=== PATIENT | female | born 1970 | race American Indian/Alaskan Native ===

== ENCOUNTER 2016-11-06 09:11 | Emergency (ER) | payer MEDICARE ==
[2016-11-06 09:19] VITALS: BP 105/76
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
[2016-11-06] MEDS ORDERED: PERCOCET 5/325 PO ONE (11:09)
--- NOTE | 2016-11-06 11:52 | XRay Report ---
LEFT KNEE, 3 VIEWS History: Pain, decreased range of motion Findings: Moderate osteoarthritic changes are identified in the medial compartment and patellofemoral space. There is no evidence for fracture, bone lesion or large osteochondral defect. Small joint effusion is suspected. Impression: Moderate osteoarthritic changes.
== END 2016-11-06 12:54 | disposition home or self-care (01) ==
LOC: ED 09:11
DX: M79.605 Pain in left leg (principal); M79.604 Pain in right leg; J06.9 Acute upper respiratory infection, unspecified; M17.9 Osteoarthritis of knee, unspecified; F20.9 Schizophrenia, unspecified; J45.909 Unspecified asthma, uncomplicated; R56.9 Unspecified convulsions; Z87.891 Personal history of nicotine dependence

== ENCOUNTER 2016-12-12 08:05 | Emergency (ER) | payer MEDICARE ==
[2016-12-12 09:10] LABS: Urine Drugs of Abuse Note Disclamer
[2016-12-12 09:24] LABS: Hematocrit 30.1 % (30.3-42.9); Hemoglobin 9.8 gm/dl (10.1-14.3); Mean Corpuscular HGB Conc 33 % (30-34); Mean Corpuscular Hemoglobin 26 pg (28-32); Mean Corpuscular Volume 81 fl (79-97); Platelet Count 197 K/mm3 (140-440); Red Blood Count 3.73 M/mm3 (3.65-5.03); Red Cell Distribution Width 15.5 % (13.2-15.2); White Blood Count 3.7 K/mm3 (4.5-11.0)
[2016-12-12 09:32] LABS: Bacteria,Urine 1+ /HPF (Negative); Bilirubin,Urine NEG (Negative); Blood,Urine SM (Negative); Ketones,Urine NEG (Negative); Leukocyte Esterase,Urine MOD (Negative); Mucus,Urine FEW /HPF; Nitrite,Urine NEG (Negative); Protein,Urine <15 mg/dL mg/dL (Negative); Urobilinogen,Urine < 2.0 mg/dL (<2.0)
[2016-12-12 09:41] LABS: Anion Gap 13 mmol/L; BUN/Creatinine Ratio 16.66; Blood Urea Nitrogen 10 mg/dL (7-17); Calcium 8.3 mg/dL (8.4-10.2); Carbon Dioxide 24 mmol/L (22-30); Chloride 103.9 mmol/L (98-107); Glucose 83 mg/dL (65-100); Potassium 3.6 mmol/L (3.6-5.0); Sodium 137 mmol/L (137-145)
[2016-12-12 11:04] LABS: Blastocytes % (Manual) 0 %
[2016-12-12 11:05] LABS: Anisocytosis 1+; Diff Status Complete; Platelet Estimate Cons
--- NOTE | 2016-12-12 15:07 | Emergency Department Report ---
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 Myelocytes % % Promyelocytes % % Blast Cells % % Nucleated RBC % Seg Neutrophils # Man (1.8-7.7) K/mm3 Band Neutrophils # K/mm3 Lymphocytes # (Manual) (1.2-5.4) K/mm3 Abs React Lymphs (Man) K/mm3 Monocytes # (Manual) (0.0-0.8) K/mm3 Eosinophils # (Manual) (0.0-0.4) K/mm3 Basophils # (Manual) (0.0-0.1) K/mm3 Metamyelocytes # K/mm3 Myelocytes # K/mm3 Promyelocytes # K/mm3 Blast Cells # K/mm3 WBC Morphology Hypersegmented Neuts Hyposegmented Neuts Hypogranular Neuts Smudge Cells Toxic Granulation Toxic Vacuolation Dohle Bodies Pelger-Huet Anomaly Federico Rods Platelet Estimate Clumped Platelets Plt Clumps, EDTA Large Platelets Giant Platelets Platelet Satelliting Plt Morphology Comment RBC Morphology Dimorphic RBCs Polychromasia Hypochromasia Poikilocytosis Anisocytosis Microcytosis Macrocytosis Spherocytes Pappenheimer Bodies Sickle Cells Target Cells Tear Drop Cells Ovalocytes Helmet Cells Sin-Spal[place] Bodies [place] Rings Liz Cells Bite Cells Crenated Cell Elliptocytes Acanthocytes (Spur) Rouleaux Hemoglobin C Crystals Schistocytes Malaria parasites Gary Bodies Hem Pathologist Commnt Sodium (137-145) mmol/L Potassium (3.6-5.0) mmol/L Chloride (98-107) mmol/L Carbon Dioxide (22-30) mmol/L Anion Gap mmol/L BUN (7-17) mg/dL Creatinine (0.7-1.2) mg/dL Estimated GFR ml/min BUN/Creatinine Ratio % Glucose (65-100) mg/dL Calcium (8.4-10.2) mg/dL Total Creatine Kinase 115 (30-135) units/L HCG, Qual (Negative) Urine Color (Yellow) Urine Turbidity (Clear) Urine pH (5.0-7.0) Ur Specific [place] (1.003-1.030) Urine Protein (Negative) mg/dL Urine Glucose (UA) (Negative) mg/dL Urine Ketones (Negative) mg/dL Urine Blood (Negative) Urine Nitrite (Negative) Urine Bilirubin (Negative) Urine Urobilinogen (<2.0) mg/dL Ur Leukocyte Esterase (Negative) Urine WBC (Auto) (0.0-6.0) /HPF Urine RBC (Auto) (0.0-6.0) /HPF U Epithel Cells (Auto) (0-13.0) /HPF Urine Bacteria (Auto) (Negative) /HPF Urine Mucus /HPF Salicylates < 0.3 L (2.8-20.0) mg/dL Urine Opiates Screen Urine Methadone Screen Acetaminophen < 15.0 (10.0-30.0) ug/mL Ur Barbiturates Screen Valproic Acid < 2.8 L (50-100) ug/mL Ur Phencyclidine Scrn Ur Amphetamines Screen U Benzodiazepines Scrn Urine Cocaine Screen U Marijuana (THC) Screen Drugs of Abuse Note Plasma/Serum Alcohol (0-0.07) gm% - EKG Data -: EKG Interpreted by Me EKG shows normal: sinus rhythm, axis, intervals, QRS complexes, ST-T waves Rate: normal - EKG Data When compared to previous EKG there are: previous EKG unavailable - Radiology Data Radiology results: report reviewed, image reviewed CT scan of the brain is negative. CT scan of the cervical spine is negative Critical care attestation.: If time is entered above; I have spent that time in minutes in the direct care of this critically ill patient, excluding procedure time. ED Disposition Clinical Impression: Mood disorder Disposition: DC/TX PSY HOSP/PSY UNIT Is pt being admited?: No Does the pt Need Aspirin: No Condition: Good Referrals: PRIMARY CARE, [Primary Care Provider] - 3-5 Days
--- NOTE | 2016-12-12 16:05 | Cat Scan Report ---
CT scan of head without contrast: History: Lengthening strike an easier. Findings: Ventricles are normal in size and midline in location. No evidence of acute ischemia, hemorrhage or mass. No extra-axial fluid collection. Normal brainstem and cerebellum. Impression: No acute intracranial abnormality.
--- NOTE | 2016-12-12 16:09 | Cat Scan Report ---
CT scan cervical spine: History: Light demonstrate amnesia. Findings: The odontoid process and lateral mass and anterior and posterior arch of atlas appears unremarkable. Normal occipital condyles. Normal height of vertebral bodies 2 decrease in height of C3-4, C4-C5 and C5-C6 with evidence of cervical spondylosis. Large anterior osteophyte at C5. Normal prevertebral soft tissue. No fracture. Impression: No evidence of acute fracture. Cervical spondylosis
[2016-12-12 16:18] LABS: Salicylate < 0.3 mg/dL (2.8-20.0); Valproate < 2.8 ug/mL (50-100)
[2016-12-12] MEDS ORDERED: ATIVAN IM PRN (17:35)
[2016-12-12] MEDS ORDERED: MOTRIN PO PRN (17:35)
[2016-12-12] MEDS: ZOLOFT PO SCH (20:00)
[2016-12-12] MEDS ORDERED: AMBIEN PO SCH (22:00)
[2016-12-13] MEDS: ZOLOFT PO SCH (10:08)
[2016-12-13 10:10] VITALS: BP 110/69
[2016-12-13] MEDS ORDERED: NON-FORMULARY (Quetiapine Fumarate [Seroquel Xr] 400 MG) PO SCH (18:00)
== END 2016-12-13 12:43 ==
LOC: ED 08:05
DX: F39 Unspecified mood [affective] disorder (principal); R56.9 Unspecified convulsions; F20.9 Schizophrenia, unspecified; F43.10 Post-traumatic stress disorder, unspecified; J45.909 Unspecified asthma, uncomplicated; F17.200 Nicotine dependence, unspecified, uncomplicated; F14.10 Cocaine abuse, uncomplicated; F12.10 Cannabis abuse, uncomplicated; Z90.49 Acquired absence of other specified parts of digestive tract; Z98.51 Tubal ligation status; Z91.013 Allergy to seafood; Z21 Asymptomatic human immunodeficiency virus [HIV] infection status
CPT/HCPCS: 36415; 70450; 72125; 80048; 80164; 80307; 81001; 82550; 84703; 85007; 85025; 93005; 93010; 99285; G0480; 80320

== ENCOUNTER 2017-05-11 23:01 | Emergency (ER) | payer MEDICARE ==
[2017-05-12 00:02] VITALS: BP 122/80
--- NOTE | 2017-05-12 03:00 | Emergency Department Report ---
HPI - General Chief Complaint: Back Pain/Injury Time Seen by Provider: 05/12/17 02:19 - HPI HPI: This is a 47-year-old female presents to ED complaining of running out of her medication for chronic back pain. Patient states she has a history of chronic back pain for the past 8 years and has been on medication prescribed by her Doctor at [facility]. Patient states she ran out of her medications. She states she does have a refill to the pharmacy to grape picker the medication and she was told that she did not have a refill. She admits to mild vaginal pain at the moment. She denies any other problems ED Past Medical Hx - Past Medical History Hx Seizures: Yes Hx Psychiatric Treatment: Yes (Schizophrenia, PTSD) Hx Asthma: Yes Hx HIV: Yes Additional medical history: Heart Murmur. cocaine abuse. alcohol abuse - Surgical History Hx Appendectomy: Yes Additional Surgical History: . tubal ligation - Social History Smoking Status: Never Smoker - Medications Home Medications: Home Medications Medication Instructions Recorded Confirmed Last Taken Type Divalproex Dr [DepaKOTE DR] 500 mg PO BID 12/12/16 12/12/16 Unknown History Oxycodone HCl [Roxicodone TAB] 15 mg PO Q6H PRN 12/12/16 12/12/16 Unknown History Quetiapine Fumarate [SEROquel XR] 400 mg PO QPM 12/12/16 12/12/16 Unknown History Sertraline [Zoloft] 100 mg PO QDAY 12/12/16 12/12/16 Unknown History Zolpidem [Ambien] 10 mg PO QHS 12/12/16 12/12/16 Unknown History HYDROcodone/APAP 5-325 [[place] 1 each PO Q6HR PRN #10 tablet 05/12/17 Unknown Rx 5/325] ED Review of Systems ROS: Stated complaint: BACK PAIN Other details as noted in HPI Constitutional: denies: chills, fever Eyes: denies: eye pain, eye discharge, vision change ENT: denies: ear pain, throat pain Respiratory: denies: cough, shortness of breath, wheezing Cardiovascular: denies: chest pain, palpitations Endocrine: no symptoms reported Gastrointestinal: denies: abdominal pain, nausea, diarrhea Genitourinary: denies: urgency, dysuria, discharge Musculoskeletal: denies: back pain, joint swelling, arthralgia Skin: denies: rash, lesions Neurological: denies: headache, weakness, paresthesias Psychiatric: denies: anxiety, depression Hematological/Lymphatic: denies: easy bleeding, easy bruising Physical Exam - Physical Exam Vital Signs: Vital Signs 05/12/17 00:02 Temperature 98.6 F Pulse Rate 77 Respiratory 14 Rate Blood Pressure 122/80 [Left] Physical Exam: GENERAL: Alert and oriented x3, no apparent distress, Normal Gait, atraumatic. HEAD: Head is normocephalic and a-traumatic. EYES: Extra ocular muscles are intact. Pupils are equal, round, and reactive to light and accommodation. NECK: Supple. Non edematous, No carotid bruits. No lymphadenopathy or thyromegaly. No C-spine tenderness LUNGS: Symetrical with respiration, No wheezing, no rales or crackles, CTAB. HEART: S1, S2 present, regular rate and rhythm without murmur, no rubs, no gallops. Non tender to palpation ABDOMEN: No organomegaly was noted,Positive bowel sounds, soft, and non- distended. . Nontender to palpation on all Quadrants, NO CVA tenderness. BACK: Full range of motion, no spinal tenderness, nontender to palpation. EXTREMITIES/MUSCULOSKELETAL: No cyanosis, clubbing, rash, lesions or edema. Full ROM bilaterally. UE/LE Pulses 2+ bilaterally. SKIN: Warm and dry, No lesions, No ulceration or induration present. ED Course Vital Signs 05/12/17 00:02 Temperature 98.6 F Pulse Rate 77 Respiratory 14 Rate Blood Pressure 122/80 [Left] ED Medical Decision Making - Medical Decision Making 47-year-old female presents with chronic back pain ED course: Patient instructions she was not treated in ED. Discussed admission and a piece of medication from the pharmacy. Discussed follow-up with Dr. Mera quintero Vital signs are stable patient is in no acute distress. Patient is alert and oriented 3 she understands instructions given Critical care attestation.: If time is entered above; I have spent that time in minutes in the direct care of this critically ill patient, excluding procedure time. ED Disposition Clinical Impression: Chronic low back pain without sciatica Qualifiers: Back pain laterality: bilateral Qualified Code(s): M54.5 - Low back pain; G89.29 - Other chronic pain Disposition: TO HOME OR SELFCARE Is pt being admited?: No Does the pt Need Aspirin: No Condition: Stable Instructions: Chronic Back Pain (ED), Lumbar Radiculopathy (ED) Additional Instructions: Follow-up with your primary care doctor. Prescriptions: HYDROcodone/APAP 5-325 [[place] 5/325] 1 each PO Q6HR PRN #10 tablet PRN Reason: Pain Referrals: PRIMARY CARE, [Primary Care Provider] - 3-5 Days MARIMAR KRAUSE MD [Referring] - 3-5 Days BRANDY JIMENEZ MD [Referring] - 3-5 Days Forms: Work/School Release Form Time of Disposition: 03:02
== END 2017-05-12 03:36 | disposition home or self-care (01) ==
LOC: ED 23:01
DX: M54.5 Low back pain (principal); G89.29 Other chronic pain; F20.9 Schizophrenia, unspecified; J45.909 Unspecified asthma, uncomplicated
CPT/HCPCS: 99282

== ENCOUNTER 2017-06-18 07:35 | Emergency (ER) | payer MEDICARE ==
[2017-06-18 08:14] LABS: Anion Gap 14 mmol/L; BUN/Creatinine Ratio 14; Blood Urea Nitrogen 10 mg/dL (7-17); Calcium 8.4 mg/dL (8.4-10.2); Carbon Dioxide 25 mmol/L (22-30); Chloride 102.5 mmol/L (98-107); Glucose 95 mg/dL (65-100); Potassium 3.6 mmol/L (3.6-5.0); Sodium 138 mmol/L (137-145)
[2017-06-18 08:22] LABS: Hematocrit 38.2 % (30.3-42.9); Hemoglobin 12.1 gm/dl (10.1-14.3); Mean Corpuscular HGB Conc 32 % (30-34); Mean Corpuscular Hemoglobin 27 pg (28-32); Mean Corpuscular Volume 84 fl (79-97); Platelet Count 195 K/mm3 (140-440); Red Blood Count 4.58 M/mm3 (3.65-5.03); Red Cell Distribution Width 17.6 % (13.2-15.2); White Blood Count 3.6 K/mm3 (4.5-11.0)
[2017-06-18 08:30] LABS: Bacteria,Urine 1+ /HPF (Negative); Bilirubin,Urine NEG (Negative); Blood,Urine NEG (Negative); Ketones,Urine NEG (Negative); Leukocyte Esterase,Urine SM (Negative); Mucus,Urine FEW /HPF; Nitrite,Urine NEG (Negative); Protein,Urine <15 mg/dL mg/dL (Negative); Urobilinogen,Urine < 2.0 mg/dL (<2.0)
--- NOTE | 2017-06-18 08:40 | Emergency Department Report ---
ED General Adult HPI - General Chief complaint: Psych Stated complaint: DETOX Time Seen by Provider: 06/18/17 08:36 Source: patient Mode of arrival: Ambulatory Limitations: No Limitations - History of Present Illness Initial comments: Patient is a 47-year-old female past medical history of PTSD and schizophrenia who presents with homicidal ideation and drug detox. Patient states that she hasn't controlled the last couple days but she states that she wants to hurt someone. Because she is homeless and she feels that she is withdrawing from drugs. Patient states that she takes "whatever I can get my hands on." Patient is not more specific numbness. Patient does not respond when I asked if she is suicidal. Patient has no concrete plan for her homicidal ideation. - Related Data Home Medications Medication Instructions Recorded Confirmed Last Taken Divalproex Dr [DepaKOTE DR] 500 mg PO BID 12/12/16 12/12/16 Unknown Oxycodone HCl [Roxicodone TAB] 15 mg PO Q6H PRN 12/12/16 12/12/16 Unknown Quetiapine Fumarate [SEROquel XR] 400 mg PO QPM 12/12/16 12/12/16 Unknown Sertraline [Zoloft] 100 mg PO QDAY 12/12/16 12/12/16 Unknown Zolpidem [Ambien] 10 mg PO QHS 12/12/16 12/12/16 Unknown Previous Rx's Medication Instructions Recorded Last Taken Type HYDROcodone/APAP 5-325 [[place] 1 each PO Q6HR PRN #10 tablet 05/12/17 Unknown Rx 5/325] Allergies Allergy/AdvReac Type Severity Reaction Status Date / Time Fish Containing Products Allergy Swelling Verified 12/12/16 08:38 hotdogs AdvReac "can't Uncoded 12/12/16 08:38 digest" ED Review of Systems ROS: Stated complaint: DETOX Other details as noted in HPI Constitutional: denies: chills, fever Eyes: denies: eye pain, eye discharge, vision change ENT: denies: ear pain, throat pain Respiratory: denies: cough, shortness of breath, wheezing Cardiovascular: denies: chest pain, palpitations Endocrine: no symptoms reported Gastrointestinal: denies: abdominal pain, nausea, diarrhea Genitourinary: denies: urgency, dysuria, discharge Musculoskeletal: myalgia. denies: back pain, joint swelling, arthralgia Skin: denies: rash, lesions Neurological: denies: headache, weakness, paresthesias Psychiatric: as per HPI, anxiety, depression, homicidal thoughts Hematological/Lymphatic: denies: easy bleeding, easy bruising ED Past Medical Hx - Past Medical History Hx Seizures: Yes Hx Psychiatric Treatment: Yes (Schizophrenia, PTSD) Hx Asthma: Yes Hx HIV: Yes Additional medical history: Heart Murmur. cocaine abuse. alcohol abuse - Surgical History Hx Appendectomy: Yes Additional Surgical History: . tubal ligation - Social History Smoking Status: Current Every Day Smoker Substance Use Type: Alcohol, Cocaine, Prescribed - Medications Home Medications: Home Medications Medication Instructions Recorded Confirmed Last Taken Type Divalproex Dr [DepaKOTE DR] 500 mg PO BID 12/12/16 12/12/16 Unknown History Oxycodone HCl [Roxicodone TAB] 15 mg PO Q6H PRN 12/12/16 12/12/16 Unknown History Quetiapine Fumarate [SEROquel XR] 400 mg PO QPM 12/12/16 12/12/16 Unknown History Sertraline [Zoloft] 100 mg PO QDAY 12/12/16 12/12/16 Unknown History Zolpidem [Ambien] 10 mg PO QHS 12/12/16 12/12/16 Unknown History HYDROcodone/APAP 5-325 [[place] 1 each PO Q6HR PRN #10 tablet 05/12/17 Unknown Rx 5/325] ED Physical Exam - General Limitations: No Limitations General appearance: alert, in no apparent distress - Head Head exam: Present: atraumatic, normocephalic - Eye Eye exam: Present: normal appearance - ENT ENT exam: Present: mucous membranes moist - Neck Neck exam: Present: normal inspection - Respiratory Respiratory exam: Present: normal lung sounds bilaterally. Absent: respiratory distress - Cardiovascular Cardiovascular Exam: Present: regular rate, normal rhythm. Absent: systolic murmur, diastolic murmur, rubs, gallop - GI/Abdominal GI/Abdominal exam: Present: soft, normal bowel sounds - Extremities Exam Extremities exam: Present: normal inspection - Back Exam Back exam: Present: normal inspection - Neurological Exam Neurological exam: Present: alert, oriented X3 - Psychiatric Psychiatric exam: Present: agitated, anxious, homicidal ideation - Skin Skin exam: Present: warm, dry, intact, normal color. Absent: rash ED Course Vital Signs 06/18/17 07:39 Temperature 98.7 F Pulse Rate 108 H Respiratory 20 Rate Blood Pressure 108/75 O2 Sat by Pulse 98 Oximetry ED Medical Decision Making - Lab Data Result diagrams: 06/18/17 07:48 06/18/17 07:48 Lab Results 06/18/17 06/18/17 06/18/17 Range/Units 07:48 07:48 07:48 WBC 3.6 L (4.5-11.0) K/mm3 RBC 4.58 (3.65-5.03) M/mm3 Hgb 12.1 (10.1-14.3) gm/dl Hct 38.2 (30.3-42.9) % MCV 84 (79-97) fl MCH 27 L (28-32) pg MCHC 32 (30-34) % RDW 17.6 H (13.2-15.2) % Plt Count 195 (140-440) K/mm3 Add Manual Diff Complete Total Counted 100 Seg Neutrophils % Echocardiography Tech Seg Neuts % (Manual) 19.0 L (40.0-70.0) % Band Neutrophils % 0 % Lymphocytes % (Manual) 73.0 H (13.4-35.0) % Reactive Lymphs % (Man) 0 % Monocytes % (Manual) 6.0 (0.0-7.3) % Eosinophils % (Manual) 2.0 (0.0-4.3) % Basophils % (Manual) 0 (0.0-1.8) % Metamyelocytes % 0 % Myelocytes % 0 % Promyelocytes % 0 % Blast Cells % 0 % Nucleated RBC % Not Reportable Seg Neutrophils # Man 0.7 L (1.8-7.7) K/mm3 Band Neutrophils # 0.0 K/mm3 Lymphocytes # (Manual) 2.6 (1.2-5.4) K/mm3 Abs React Lymphs (Man) 0.0 K/mm3 Monocytes # (Manual) 0.2 (0.0-0.8) K/mm3 Eosinophils # (Manual) 0.1 (0.0-0.4) K/mm3 Basophils # (Manual) 0.0 (0.0-0.1) K/mm3 Metamyelocytes # 0.0 K/mm3 Myelocytes # 0.0 K/mm3 Promyelocytes # 0.0 K/mm3 Blast Cells # 0.0 K/mm3 WBC Morphology Not Reportable Hypersegmented Neuts Not Reportable Hyposegmented Neuts Not Reportable Hypogranular Neuts Not Reportable Smudge Cells Few Toxic Granulation Not Reportable Toxic Vacuolation Not Reportable Dohle Bodies Not Reportable Pelger-Huet Anomaly Not Reportable Federico Rods Not Reportable Platelet Estimate Appears normal Clumped Platelets Not Reportable Plt Clumps, EDTA Not Reportable Large Platelets Not Reportable Giant Platelets Not Reportable Platelet Satelliting Not Reportable Plt Morphology Comment Not Reportable RBC Morphology Normal Dimorphic RBCs Not Reportable Polychromasia Not Reportable Hypochromasia Not Reportable Poikilocytosis Not Reportable Anisocytosis Not Reportable Microcytosis Not Reportable Macrocytosis Not Reportable Spherocytes Not Reportable Pappenheimer Bodies Not Reportable Sickle Cells Not Reportable Target Cells Not Reportable Tear Drop Cells Not Reportable Ovalocytes Not Reportable Helmet Cells Not Reportable Sin-[place] Bodies Not Reportable [place] Rings Not Reportable [place] Cells Not Reportable Bite Cells Not Reportable Crenated Cell Not Reportable Elliptocytes Not Reportable Acanthocytes (Spur) Not Reportable Rouleaux Not Reportable Hemoglobin C Crystals Not Reportable Schistocytes Not Reportable Malaria parasites Not Reportable Gary Bodies Not Reportable Hem Pathologist Commnt No Sodium 138 (137-145) mmol/L Potassium 3.6 (3.6-5.0) mmol/L Chloride 102.5 (98-107) mmol/L Carbon Dioxide 25 (22-30) mmol/L Anion Gap 14 mmol/L BUN 10 (7-17) mg/dL Creatinine 0.7 (0.7-1.2) mg/dL Estimated GFR > 60 ml/min BUN/Creatinine Ratio 14 % Glucose 95 (65-100) mg/dL Calcium 8.4 (8.4-10.2) mg/dL Urine Color (Yellow) Urine Turbidity (Clear) Urine pH (5.0-7.0) Ur Specific [place] (1.003-1.030) Urine Protein (Negative) mg/dL Urine Glucose (UA) (Negative) mg/dL Urine Ketones (Negative) mg/dL Urine Blood (Negative) Urine Nitrite (Negative) Urine Bilirubin (Negative) Urine Urobilinogen (<2.0) mg/dL Ur Leukocyte Esterase (Negative) Urine WBC (Auto) (0.0-6.0) /HPF Urine RBC (Auto) (0.0-6.0) /HPF U Epithel Cells (Auto) (0-13.0) /HPF Urine Bacteria (Auto) (Negative) /HPF Urine Mucus /HPF Plasma/Serum Alcohol < 0.01 (0-0.07) gm% 06/18/17 Range/Units 08:15 WBC (4.5-11.0) K/mm3 RBC (3.65-5.03) M/mm3 Hgb (10.1-14.3) gm/dl Hct (30.3-42.9) % MCV (79-97) fl MCH (28-32) pg MCHC (30-34) % RDW (13.2-15.2) % Plt Count (140-440) K/mm3 Add Manual Diff Total Counted Seg Neutrophils % Seg Neuts % (Manual) (40.0-70.0) % Band Neutrophils % % Lymphocytes % (Manual) (13.4-35.0) % Reactive Lymphs % (Man) % Monocytes % (Manual) (0.0-7.3) % Eosinophils % (Manual) (0.0-4.3) % Basophils % (Manual) (0.0-1.8) % Metamyelocytes % % Myelocytes % % Promyelocytes % % Blast Cells % % Nucleated RBC % Seg Neutrophils # Man (1.8-7.7) K/mm3 Band Neutrophils # K/mm3 Lymphocytes # (Manual) (1.2-5.4) K/mm3 Abs React Lymphs (Man) K/mm3 Monocytes # (Manual) (0.0-0.8) K/mm3 Eosinophils # (Manual) (0.0-0.4) K/mm3 Basophils # (Manual) (0.0-0.1) K/mm3 Metamyelocytes # K/mm3 Myelocytes # K/mm3 Promyelocytes # K/mm3 Blast Cells # K/mm3 WBC Morphology Hypersegmented Neuts Hyposegmented Neuts Hypogranular Neuts Smudge Cells Toxic Granulation Toxic Vacuolation Dohle Bodies Pelger-Huet Anomaly Federico Rods Platelet Estimate Clumped Platelets Plt Clumps, EDTA Large Platelets Giant Platelets Platelet Satelliting Plt Morphology Comment RBC Morphology Dimorphic RBCs Polychromasia Hypochromasia Poikilocytosis Anisocytosis Microcytosis Macrocytosis Spherocytes Pappenheimer Bodies Sickle Cells Target Cells Tear Drop Cells Ovalocytes Helmet Cells Sin-[place] Bodies [place] Rings Liz Cells Bite Cells Crenated Cell Elliptocytes Acanthocytes (Spur) Rouleaux Hemoglobin C Crystals Schistocytes Malaria parasites Gary Bodies Hem Pathologist Commnt Sodium (137-145) mmol/L Potassium (3.6-5.0) mmol/L Chloride (98-107) mmol/L Carbon Dioxide (22-30) mmol/L Anion Gap mmol/L BUN (7-17) mg/dL Creatinine (0.7-1.2) mg/dL Estimated GFR ml/min BUN/Creatinine Ratio % Glucose (65-100) mg/dL Calcium (8.4-10.2) mg/dL Urine Color Yellow (Yellow) Urine Turbidity Clear (Clear) Urine pH 7.0 (5.0-7.0) Ur Specific [place] 1.023 (1.003-1.030) Urine Protein <15 mg/dl (Negative) mg/dL Urine Glucose (UA) Neg (Negative) mg/dL Urine Ketones Neg (Negative) mg/dL Urine Blood Neg (Negative) Urine Nitrite Neg (Negative) Urine Bilirubin Neg (Negative) Urine Urobilinogen < 2.0 (<2.0) mg/dL Ur Leukocyte Esterase Sm (Negative) Urine WBC (Auto) 1.0 (0.0-6.0) /HPF Urine RBC (Auto) 7.0 (0.0-6.0) /HPF U Epithel Cells (Auto) 31.0 H (0-13.0) /HPF Urine Bacteria (Auto) 1+ (Negative) /HPF Urine Mucus Few /HPF Plasma/Serum Alcohol (0-0.07) gm% - Medical Decision Making Chief medical diagnosis: Substance induced mood disorder Differential medical diagnosis: Schizophrenia, bipolar, alcohol intoxication, opioid intoxication I'll get the mental health worker, CBC, CMP, urine drug screen Due to patient seen that she'll hurt and kill other people that she is discharged I will sign a 1013 on this patient due to her posing a danger to others. Mental health worker agrees with plan. Critical care attestation.: If time is entered above; I have spent that time in minutes in the direct care of this critically ill patient, excluding procedure time. ED Disposition Clinical Impression: Homicidal ideation, Substance induced mood disorder Disposition: DC/TX-65 PSY HOSP/PSY UNIT Is pt being admited?: No Does the pt Need Aspirin: No Condition: Stable Referrals: [facility] [Outside] - 3-5 Days
[2017-06-18 08:51] LABS: Basophils % (Manual) 0 % (0.0-1.8); Blastocytes % (Manual) 0 %
[2017-06-18 08:52] LABS: Diff Status Complete; RBC Morphology Normal; Smudge Cells Few
--- NOTE | 2017-06-19 12:35 | Consultation ---
History of Present Illness - Reason for Consult Consult date: 06/19/17 Reason for consult: Mental Health Evaluation Requesting physician: ANASTASIA VARGAS - Chief Complaint Chief complaint: "'I am okay" - History of Present Psychiatric Illness Patient is a 47-year-old female past medical history of PTSD and schizophrenia who presents with homicidal ideation. Today patient is irritable during the assessment. She has a tangential thought process by jumping from topic to topic during the conversation. Patient had to be redirected several times to keep her focused. Her answers are not logical. She stated that she want to kill "someone " but cannot ID this person. When asked again about being homicidal, she stated "no." Patient is disorganized with her thoughts. 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 Patient was asked about a mental health dx, she stated, "bipolar/schizophrenia." She did admit to erratic sleep the last week. She stated that she was hospitalized at [facility] in the past. She denies SI's, with passive HI's. She denies AVH's. She stated taking Seroquel and Depakote recently. She denies recreational drug use and alcohol consumption (etoh). Medications and Allergies Allergies Allergy/AdvReac Type Severity Reaction Status Date / Time Fish Containing Products Allergy Swelling Verified 12/12/16 08:38 hotdogs AdvReac "can't Uncoded 12/12/16 08:38 digest" Home Medications Medication Instructions Recorded Confirmed Last Taken Type Divalproex Dr [DepaKOTE DR] 500 mg PO BID 12/12/16 12/12/16 Unknown History Oxycodone HCl [Roxicodone TAB] 15 mg PO Q6H PRN 12/12/16 12/12/16 Unknown History Quetiapine Fumarate [SEROquel XR] 400 mg PO QPM 12/12/16 12/12/16 Unknown History Sertraline [Zoloft] 100 mg PO QDAY 12/12/16 12/12/16 Unknown History Zolpidem [Ambien] 10 mg PO QHS 12/12/16 12/12/16 Unknown History HYDROcodone/APAP 5-325 [[place] 1 each PO Q6HR PRN #10 tablet 05/12/17 Unknown Rx 5/325] Past psychiatric history - Past Medical History Past Medical History: HIV/AIDS, seizures Past Surgical History: No surgical history - past Psychiatric treatment and history Psych: Psychosis, Schizophrenia psychiatric treatment history: Mutiple inpatient psy settings. Denies a fam psy hx. - Social History Social history: other (Homeless) Mental Status Exam - Vital signs Last Vital Signs Temp 98.7 F 06/18/17 07:39 Pulse 108 H 06/18/17 07:39 Resp 20 06/18/17 07:39 BP 108/75 06/18/17 07:39 Pulse Ox 98 06/18/17 07:39 - Exam Narrative exam: MSE: Appearance: irritable Behavior: regular eye contact Speech: regular rate and tone, hyper verbal Mood: "okay" Affect: labile Thought Process: tangential Thought Content: denies SI and AVH's, delusional Motor Activity: ambulatory Cognition: A/O x3 Insight: limited Judgment: limited Results Result Diagrams: 06/18/17 07:48 06/18/17 07:48 All other labs normal. Assessment and Plan Assessment and plan: Impression: Historical Dx: Bipolar/Schizophrenia. Unspecified Mood DO with psychotic features. Today patient is irritable during the assessment. Passive HI 's. DDx: Schizoaffective DO Recommendation/Plan: Continue 1013 with placement to [place] today. Start Seroquel 200 mg PO HS for mood/psychosis and Depakote 500 mg PO BID for mood. Discussed possible metabolic side effects of Seroquel.
[2017-06-19 13:37] LABS: Alanine Aminotransferase 10 units/L (7-56); Alkaline Phosphatase 43 units/L (35-129)
[2017-06-19 14:57] VITALS: BP 107/55
== END 2017-06-19 21:00 ==
LOC: ED 07:35 → EEVIPCON 07:35 → ED 06-19 21:00
DX: R45.850 Homicidal ideations (principal); F39 Unspecified mood [affective] disorder; F20.9 Schizophrenia, unspecified; J45.909 Unspecified asthma, uncomplicated; F17.200 Nicotine dependence, unspecified, uncomplicated; F14.129 Cocaine abuse with intoxication, unspecified
CPT/HCPCS: 36415; 80048; 80164; 81001; 84075; 84450; 84460; 84703; 85007; 85025; 99285; G0480; 80320

== ENCOUNTER 2018-01-11 13:18 | Emergency (ER) | payer MEDICARE ==
[2018-01-11 13:25] VITALS: BP 121/72
[2018-01-11 14:16] LABS: Hematocrit 31.6 % (30.3-42.9); Hemoglobin 9.9 gm/dl (10.1-14.3); Mean Corpuscular HGB Conc 31 % (30-34); Mean Corpuscular Hemoglobin 26 pg (28-32); Mean Corpuscular Volume 85 fl (79-97); Platelet Count 250 K/mm3 (140-440); Red Blood Count 3.74 M/mm3 (3.65-5.03); Red Cell Distribution Width 15.2 % (13.2-15.2)
[2018-01-11 14:24] LABS: BUN/Creatinine Ratio 13; Blood Urea Nitrogen 8 mg/dL (7-17); Calcium 8.4 mg/dL (8.4-10.2); Hemolysis Index 2
[2018-01-11 14:58] LABS: Basophils % (Manual) 0 % (0.0-1.8); Total Cells Counted 100
[2018-01-11 14:59] LABS: Platelet Estimate A; RBC Morphology Normal
== END 2018-01-11 15:10 | disposition left against medical advice (07) ==
LOC: ED 13:18
DX: R05 Cough (principal); Z53.21 Procedure and treatment not carried out due to patient leaving prior to being seen by health care provider
CPT/HCPCS: 36415; 80048; 85007; 85025; G0480; 80320

== ENCOUNTER 2018-05-30 18:24 | Emergency (ER) | payer MEDICARE ==
[2018-05-30 20:11] LABS: BUN/Creatinine Ratio 10; Blood Urea Nitrogen 7 mg/dL (7-17); Calcium 8.6 mg/dL (8.4-10.2); Hemolysis Index 1
[2018-05-30 20:15] LABS: Hemoglobin 10.4 gm/dl (10.1-14.3); Mean Corpuscular HGB Conc 32 % (30-34); Mean Corpuscular Hemoglobin 27 pg (28-32); Mean Corpuscular Volume 82 fl (79-97); Platelet Count 192 K/mm3 (140-440); Red Blood Count 3.88 M/mm3 (3.65-5.03); Red Cell Distribution Width 15.8 % (13.2-15.2)
[2018-05-30] MEDS ORDERED: VITAMIN B-1 100 MG, FOLVITE 1 MG, INFUVITE 10 ML in NACL 0.9% 1000 ML 1,000 ML IV ONE (21:00)
--- NOTE | 2018-05-30 21:11 | Emergency Department Report ---
ED Psych HPI - General Chief Complaint: Psych Stated Complaint: PSYCH EVAL/DETOX Time Seen by Provider: 05/30/18 21:11 Source: patient Mode of arrival: Ambulatory - History of Present Illness Initial Comments: Patient is a 48-year-old female that presents emergency room for mental evaluation and medical clearance. Patient states she wants to pass up with the marijuana and alcohol abuse and detox. Patient states that she's been off her medication since March 2018. She states she is having suicidal homicidal ideations. Patient states she wants to hurt anybody and kill herself. Patient' s plan to kill herself is to overdose. Patient states she wants to . Patient states she started living homeless and with these addiction problems. Patient states she is tired of being HIV positive and having always syphilis from having unprotected sex. Patient denies chest pain. Patient denies muscle pains. Patient denies shortness of breath. Patient denies diaphoresis. Patient denies abdominal pain patient denies physical complaints. MD Complaint: suicidal ideation, feels depressed -: Sudden Associated Psychiatric Symptoms: depression, suicidal ideation, homicidal ideation History of same: Yes Quality: constant Improves With: none Worsens With: drug use Context: recent alcohol abuse, recent drug abuse, not taking psychiatric, significant life stressor Associated Symptoms: denies other symptoms. denies: confusion, headache, shortness of breath, nausea, vomiting, syncope, insomnia Treatments Prior to Arrival: placed on mental he If Self Harm: admits thoughts of, has plan - Related Data Home Medications Medication Instructions Recorded Confirmed Last Taken Divalproex Dr [DepaKODIANE DR] 500 mg PO BID 12/12/16 12/12/16 Unknown Oxycodone HCl [Roxicodone TAB] 15 mg PO Q6H PRN 12/12/16 12/12/16 Unknown Quetiapine Fumarate [SEROquel XR] 400 mg PO QPM 12/12/16 12/12/16 Unknown Sertraline [Zoloft] 100 mg PO QDAY 12/12/16 12/12/16 Unknown Zolpidem [Ambien] 10 mg PO QHS 12/12/16 12/12/16 Unknown Previous Rx's Medication Instructions Recorded Last Taken Type HYDROcodone/APAP 5-325 [[place] 1 each PO Q6HR PRN #10 tablet 05/12/17 Unknown Rx 5/325] Allergies Allergy/AdvReac Type Severity Reaction Status Date / Time Fish Containing Products Allergy Swelling Verified 01/11/18 13:23 hotdogs AdvReac "can't Uncoded 12/12/16 08:38 digest" ED Review of Systems ROS: Stated complaint: PSYCH EVAL/DETOX Other details as noted in HPI Constitutional: denies: chills, fever Eyes: denies: eye pain, eye discharge, vision change ENT: denies: ear pain, throat pain Respiratory: denies: cough, shortness of breath, wheezing Cardiovascular: denies: chest pain, palpitations Endocrine: no symptoms reported Gastrointestinal: denies: abdominal pain, nausea, diarrhea Genitourinary: denies: urgency, dysuria, discharge Musculoskeletal: denies: back pain, joint swelling, arthralgia Skin: denies: rash, lesions Neurological: denies: headache, weakness, paresthesias Psychiatric: anxiety, depression, homicidal thoughts, suicidal thoughts Hematological/Lymphatic: denies: easy bleeding, easy bruising ED Past Medical Hx - Past Medical History Previous Medical History?: Yes Hx Seizures: Yes Hx Psychiatric Treatment: Yes (Schizophrenia, PTSD) Hx Asthma: Yes Hx HIV: Yes Additional medical history: Heart Murmur. cocaine abuse. alcohol abuse - Surgical History Past Surgical History?: Yes Hx Appendectomy: Yes Additional Surgical History: . tubal ligation - Family History Family history: no significant - Social History Smoking Status: Current Every Day Smoker Substance Use Type: Alcohol, Marijuana - Medications Home Medications: Home Medications Medication Instructions Recorded Confirmed Last Taken Type Divalproex Dr [DepaKOTE DR] 500 mg PO BID 12/12/16 12/12/16 Unknown History Oxycodone HCl [Roxicodone TAB] 15 mg PO Q6H PRN 12/12/16 12/12/16 Unknown History Quetiapine Fumarate [SEROquel XR] 400 mg PO QPM 12/12/16 12/12/16 Unknown History Sertraline [Zoloft] 100 mg PO QDAY 12/12/16 12/12/16 Unknown History Zolpidem [Ambien] 10 mg PO QHS 12/12/16 12/12/16 Unknown History HYDROcodone/APAP 5-325 [[place] 1 each PO Q6HR PRN #10 tablet 05/12/17 Unknown Rx 5/325] ED Physical Exam - General Limitations: No Limitations General appearance: alert, in no apparent distress - Head Head exam: Present: atraumatic, normocephalic - Eye Eye exam: Present: normal appearance - ENT ENT exam: Present: mucous membranes moist - Neck Neck exam: Present: normal inspection - Respiratory Respiratory exam: Present: normal lung sounds bilaterally. Absent: respiratory distress - Cardiovascular Cardiovascular Exam: Present: regular rate, normal rhythm. Absent: systolic murmur, diastolic murmur, rubs, gallop - GI/Abdominal GI/Abdominal exam: Present: soft, normal bowel sounds - Extremities Exam Extremities exam: Present: normal inspection - Back Exam Back exam: Present: normal inspection - Neurological Exam Neurological exam: Present: alert, oriented X3 - Psychiatric Psychiatric exam: Present: depressed, flat affect, homicidal ideation, suicidal ideation - Skin Skin exam: Present: warm, dry, intact, normal color. Absent: rash ED Course Vital Signs 05/30/18 19:09 Temperature 98 F Pulse Rate 88 Respiratory 18 Rate Blood Pressure 132/79 O2 Sat by Pulse 97 Oximetry - Reevaluation(s) Reevaluation #1: Patient is here for medical clearance for a 1013. Patient was placed on 1013 due to suicidal or homicidal ideations with plan. Patient potassium was significantly low. Patient will be given a banana bag and reassessed. 05/30/18 21:55 patient's repeat potassium is 3.3. Patient is medically clear. Patient will remain on 1013. 05/31/18 02:34 ED Medical Decision Making - Lab Data Result diagrams: 05/30/18 19:38 05/31/18 01:56 - Medical Decision Making 48-year-old female presents emergency room with suicidal ideations and homicidal ideations and was placed on a 1013. Patient's potassium was initially low. Patient with a banana bag and oral potassium supplement. Initial potassium was 2.9 and repeat is 3.3. Patient is medically cleared. Patient will remain on a 1013 until accepted into appropriate psychiatric facility. Mental health evaluated the patient. - Differential Diagnosis dep. si. hi. low k. Critical care attestation.: If time is entered above; I have spent that time in minutes in the direct care of this critically ill patient, excluding procedure time. ED Disposition Clinical Impression: Suicidal ideation, Hypokalemia Disposition: DC/TX-65 PSY HOSP/PSY UNIT Is pt being admited?: No Does the pt Need Aspirin: No Condition: Stable Referrals: PRIMARY CARE, [Primary Care Provider] - 3-5 Days Time of Disposition: 02:35
[2018-05-30 21:33] LABS: Amphetamine Screen,Urine PRESUMPTIVE NEGATIVE; Benzodiazepines Screen,Urine PRESUMPTIVE NEGATIVE; Cannabinoid Screen,Urine PRESUMPTIVE NEGATIVE; Cocaine Screen,Urine PRESUMPTIVE NEGATIVE; Methadone Screen,Urine PRESUMPTIVE NEGATIVE; Opiate Screen,Urine PRESUMPTIVE NEGATIVE
[2018-05-30 21:34] LABS: Bacteria,Urine 1+ /HPF (Negative); Bilirubin,Urine NEG (Negative); Blood,Urine LG (Negative); Color,Urine Yellow (Yellow); Mucus,Urine FEW /HPF; Protein,Urine <15 mg/dL mg/dL (Negative); Urobilinogen,Urine < 2.0 mg/dL (<2.0)
[2018-05-30 21:49] LABS: Band Neutrophils # (Manual) 0.1 K/mm3; Hypochromasia 1+; Total Cells Counted 100
[2018-05-30 21:50] LABS: Ovalocytes 1+; Poikilocytosis Few
[2018-05-31] MEDS ORDERED: K-DUR PO ONE (00:56)
[2018-05-31 02:24] LABS: BUN/Creatinine Ratio 10; Blood Urea Nitrogen 6 mg/dL (7-17); Calcium 8.1 mg/dL (8.4-10.2); Hemolysis Index 3
[2018-05-31 12:07] LABS: Alanine Aminotransferase 11 units/L (7-56); Lipase 22 units/L (13-60)
--- NOTE | 2018-05-31 17:08 | Consultation ---
History of Present Illness - Reason for Consult Consult date: 05/31/18 Reason for consult: Mental Health Evaluation Requesting physician: ASHISH WOOD III - Chief Complaint Chief complaint: "I just need help" - History of Present Psychiatric Illness 48-year-old AA female that presents emergency room for SI/HI's. Today the patient is cooperative, but tangent during the assessment. She stated that she having issues with [facility] She stated that she was not treated "right"" by this outpatient psy facility. She would not go into details , but stated that she felt like killing the entire staff. She stated that she may kill herself. She was asked about being suicidal, she would not confirm or deny. 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 She denies AVH's, a poor appetite, and erratic sleep. She denies recreational drug use and alcohol consumption (etoh). Medications and Allergies Allergies Allergy/AdvReac Type Severity Reaction Status Date / Time Fish Containing Products Allergy Swelling Verified 01/11/18 13:23 hotdogs AdvReac "can't Uncoded 12/12/16 08:38 digest" Home Medications Medication Instructions Recorded Confirmed Last Taken Type Divalproex [Robyn JURADO] 500 mg PO BID 12/12/16 12/12/16 Unknown History Oxycodone HCl [Roxicodone TAB] 15 mg PO Q6H PRN 12/12/16 12/12/16 Unknown History Quetiapine Fumarate [SEROquel XR] 400 mg PO QPM 12/12/16 12/12/16 Unknown History Sertraline [Zoloft] 100 mg PO QDAY 12/12/16 12/12/16 Unknown History Zolpidem [Ambien] 10 mg PO QHS 12/12/16 12/12/16 Unknown History HYDROcodone/APAP 5-325 [[place] 1 each PO Q6HR PRN #10 tablet 05/12/17 Unknown Rx 5/325] Past psychiatric history - Past Medical History Past Medical History: HIV/AIDS Past Surgical History: No surgical history - past Psychiatric treatment and history psychiatric treatment history: Several inpatient psy settings. Denies a fam psy hx. - Social History Social history: other (Homeless) Mental Status Exam - Vital signs Last Vital Signs Temp 98 F 05/30/18 19:09 Pulse 88 05/30/18 19:09 Resp 18 05/30/18 19:09 BP 132/79 18 19:09 Pulse Ox 97 05/30/18 19:09 - Exam Narrative exam: MSE: Appearance: cooperative Behavior: regular eye contact Speech: regular rate and tone Mood: "depressed" Affect: flat Thought Process: tangential Thought Content: denies and AVH's, delusional Motor Activity: ambulatory Cognition: A/O x 3 Insight: poor Judgment: poor Results Result Diagrams: 05/30/18 19:38 05/31/18 01:56 Abnormal lab results 05/30/18 05/30/18 05/30/18 Range/Units 19:38 19:38 19:38 WBC (4.5-11.0) K/mm3 MCH (28-32) pg RDW (13.2-15.2) % Monocytes % (Manual) (0.0-7.3) % Basophils % (Manual) (0.0-1.8) % Seg Neutrophils # Man (1.8-7.7) K/mm3 Lymphocytes # (Manual) (1.2-5.4) K/mm3 Potassium 2.9 L* (3.6-5.0) mmol/L BUN (7-17) mg/dL Creatinine (0.7-1.2) mg/dL Glucose 110 H (65-100) mg/dL Calcium (8.4-10.2) mg/dL Salicylates < 0.3 L (2.8-20.0) mg/dL Acetaminophen < 5.0 L (10.0-30.0) ug/mL Valproic Acid (50-100) ug/mL 05/30/18 05/31/18 05/31/18 Range/Units 19:38 01:56 11:29 WBC 3.3 L (4.5-11.0) K/mm3 MCH 27 L (28-32) pg RDW 15.8 H (13.2-15.2) % Monocytes % (Manual) 14.0 H (0.0-7.3) % Basophils % (Manual) 2.0 H (0.0-1.8) % Seg Neutrophils # Man 1.5 L (1.8-7.7) K/mm3 Lymphocytes # (Manual) 1.1 L (1.2-5.4) K/mm3 Potassium 3.3 L (3.6-5.0) mmol/L BUN 6 L (7-17) mg/dL Creatinine 0.6 L (0.7-1.2) mg/dL Glucose 110 H (65-100) mg/dL Calcium 8.1 L (8.4-10.2) mg/dL Salicylates (2.8-20.0) mg/dL Acetaminophen (10.0-30.0) ug/mL Valproic Acid < 2.8 L (50-100) ug/mL All other labs normal. Assessment and Plan Assessment and plan: Impression: Unspecified Mood DO with psy features. Today the patient is cooperative, but tangent during the assessment. UDS is negative. DDx: Bipolar DO with psychosis, R/o Schzioaffective DO Recommendation/Plan: Continue 1013 with placement to inpatient psy services. Start Depakote 500 mg PO BID and Seroquel 200 mg PO HS for psychosis/mood. Discussed possible metabolic side effects of Seroquel with the patient. [facility] Police was called and a voicemail was left on the non emergency line reference the patient's HI's. Informed them to contact the patient's assigned nurse in the ER for more information.
[2018-06-01 14:03] VITALS: BP 123/83
--- NOTE | 2018-06-01 19:21 | Progress Note ---
Subjective - Reason for Consult Consult date: 06/01/18 Reason for consult: follow up - Chief Complaint Chief complaint: "I'm the same." 48-year-old AA female that presents emergency room for SI/HI's. Today the patient is cooperative but will only say she is the same and is paranoid and hearing voices. She previously stated that she felt like killing the entire staff of [facility]. She stated that she may kill herself. She states she needs to take her HIV meds and that she brought them to the hospital. Narrative exam: MSE: Appearance: cooperative Behavior: regular eye contact Speech: regular rate and tone Mood: "depressed" Affect: flat Thought Process: tangential Thought Content: HI, paranoia, AH-will not discuss Motor Activity: ambulatory Cognition: A/O x 3 Insight: poor Judgment: poor Assessment and plan: Impression: Unspecified Mood DO with psy features. Today the patient is cooperative, but tangent during the assessment. UDS is negative. DDx: Bipolar DO with psychosis, R/o Schizoaffective DO Recommendation/Plan: Continue 1013 with placement to inpatient psy services. Continue Depakote 500 mg PO BID and Seroquel 200 mg PO HS for psychosis/mood. Nurse was informed patient brought her HIV meds and wants to take them. Mental Status Exam - Vital signs Last Vital Signs Temp 98.7 F 06/01/18 11:00 Pulse 90 06/01/18 11:00 Resp 16 06/01/18 11:00 BP 123/83 06/01/18 11:00 Pulse Ox 100 06/01/18 11:00
== END 2018-06-01 22:36 ==
LOC: ED 18:24
DX: F20.9 Schizophrenia, unspecified (principal); F43.10 Post-traumatic stress disorder, unspecified; E87.6 Hypokalemia; J45.909 Unspecified asthma, uncomplicated; F14.10 Cocaine abuse, uncomplicated; F39 Unspecified mood [affective] disorder; F17.200 Nicotine dependence, unspecified, uncomplicated; F10.10 Alcohol abuse, uncomplicated; F12.10 Cannabis abuse, uncomplicated; Z90.89 Acquired absence of other organs; Z98.51 Tubal ligation status; Z91.013 Allergy to seafood; Z91.018 Allergy to other foods
CPT/HCPCS: 36415; 80048; 80164; 80307; 81001; 82150; 83690; 84075; 84450; 84460; 84703; 85007; 85025; 96365; 96366; 99285; G0480; J3411; J7030; 80320

== ENCOUNTER 2019-05-19 17:37 | Emergency (ER) | payer MEDICARE ==
[2019-05-19] MEDS ORDERED: AMBIEN PO PRN (20:27)
[2019-05-19 20:53] LABS: Basophils % (Auto) 0.6 % (0.0-1.8); Eosinophils # (Auto) 0.2 K/mm3 (0.0-0.4); Eosinophils % (Auto) 4.2 % (0.0-4.3); Hematocrit 26.4 % (30.3-42.9); Hemoglobin 8.4 gm/dl (10.1-14.3); Lymphocytes # (Auto) 2.1 K/mm3 (1.2-5.4); Lymphocytes % (Auto) 40.6 % (13.4-35.0); Mean Corpuscular HGB Conc 32 % (30-34); Mean Corpuscular Volume 75 fl (79-97); Monocytes # (Auto) 0.8 K/mm3 (0.0-0.8); Monocytes % (Auto) 15.7 % (0.0-7.3); Platelet Count 279 K/mm3 (140-440); Red Blood Count 3.53 M/mm3 (3.65-5.03); Red Cell Distribution Width 17.6 % (13.2-15.2)
[2019-05-19 21:27] LABS: Bilirubin,Urine NEG (Negative); Blood,Urine NEG (Negative); Color,Urine Yellow (Yellow); Mucus,Urine FEW /HPF; Protein,Urine <15 mg/dL mg/dL (Negative); Urobilinogen,Urine < 2.0 mg/dL (<2.0)
[2019-05-19 21:29] LABS: HCG Qualitative,Urine Negative (Negative)
[2019-05-19 22:15] LABS: Alanine Aminotransferase 8 units/L (7-56); Albumin 3.6 g/dL (3.9-5); BUN/Creatinine Ratio 14; Blood Urea Nitrogen 10 mg/dL (7-17); Calcium 8.3 mg/dL (8.4-10.2); Hemolysis Index 0
[2019-05-19 22:18] LABS: Amphetamine Screen,Urine PRESUMPTIVE NEGATIVE; Benzodiazepines Screen,Urine PRESUMPTIVE NEGATIVE; Cannabinoid Screen,Urine PRESUMPTIVE NEGATIVE; Cocaine Screen,Urine PRESUMPTIVE NEGATIVE; Methadone Screen,Urine PRESUMPTIVE NEGATIVE; Opiate Screen,Urine PRESUMPTIVE NEGATIVE
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
[2019-05-20 08:17] VITALS: BP 108/58
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
== END 2019-05-20 13:41 | disposition home or self-care (01) ==
LOC: ED 17:37
DX: F20.9 Schizophrenia, unspecified (principal); R45.4 Irritability and anger; F43.10 Post-traumatic stress disorder, unspecified; J45.909 Unspecified asthma, uncomplicated; F14.10 Cocaine abuse, uncomplicated; F10.10 Alcohol abuse, uncomplicated; F17.200 Nicotine dependence, unspecified, uncomplicated; Z90.49 Acquired absence of other specified parts of digestive tract; Z21 Asymptomatic human immunodeficiency virus [HIV] infection status; Z98.51 Tubal ligation status; Z79.899 Other long term (current) drug therapy; Z88.5 Allergy status to narcotic agent
CPT/HCPCS: 36415; 80053; 80164; 80307; 80320; 81001; 81025; 84443; 85025; G0480

== ENCOUNTER 2019-07-10 13:34 | Emergency (ER) | payer MEDICARE ==
[2019-07-10 14:10] VITALS: BP 107/69
[2019-07-10 15:13] LABS: Bilirubin,Urine NEG (Negative); Blood,Urine NEG (Negative); Color,Urine Yellow (Yellow); Mucus,Urine FEW /HPF; Protein,Urine <15 mg/dL mg/dL (Negative); Urobilinogen,Urine < 2.0 mg/dL (<2.0)
[2019-07-10 15:23] LABS: Amphetamine Screen,Urine PRESUMPTIVE NEGATIVE; Benzodiazepines Screen,Urine PRESUMPTIVE NEGATIVE; Cannabinoid Screen,Urine PRESUMPTIVE NEGATIVE; Cocaine Screen,Urine PRESUMPTIVE NEGATIVE; Methadone Screen,Urine PRESUMPTIVE NEGATIVE; Opiate Screen,Urine PRESUMPTIVE NEGATIVE
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
[2019-07-10 15:50] LABS: Basophils % (Auto) 0.5 % (0.0-1.8); Eosinophils # (Auto) 0.1 K/mm3 (0.0-0.4); Eosinophils % (Auto) 4.2 % (0.0-4.3); Hematocrit 28.1 % (30.3-42.9); Hemoglobin 8.9 gm/dl (10.1-14.3); Lymphocytes # (Auto) 1.5 K/mm3 (1.2-5.4); Lymphocytes % (Auto) 48.9 % (13.4-35.0); Mean Corpuscular HGB Conc 32 % (30-34); Mean Corpuscular Volume 76 fl (79-97); Monocytes # (Auto) 0.2 K/mm3 (0.0-0.8); Platelet Count 173 K/mm3 (140-440); Red Blood Count 3.69 M/mm3 (3.65-5.03); Red Cell Distribution Width 19.1 % (13.2-15.2)
[2019-07-10 16:42] LABS: BUN/Creatinine Ratio 10; Blood Urea Nitrogen 7 mg/dL (7-17); Calcium 8.5 mg/dL (8.4-10.2); Hemolysis Index 1
[2019-07-10] MEDS ORDERED: POTASSIUM CHLORIDE ER 20 MEQ TAB PO ONE (17:56)
== END 2019-07-10 19:00 | disposition home or self-care (01) ==
LOC: ED 13:34
DX: E87.6 Hypokalemia (principal); F31.9 Bipolar disorder, unspecified; F25.9 Schizoaffective disorder, unspecified; F39 Unspecified mood [affective] disorder; J45.909 Unspecified asthma, uncomplicated; F43.10 Post-traumatic stress disorder, unspecified
CPT/HCPCS: 36415; 80048; 80164; 80178; 80307; 80320; 81001; 82550; 85025; G0480

== ENCOUNTER 2019-10-08 15:16 | Emergency (ER) | payer MEDICARE ==
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
[2019-10-08 15:52] LABS: Hematocrit 30.3 % (30.3-42.9); Hemoglobin 9.8 gm/dl (10.1-14.3); Mean Corpuscular HGB Conc 32 % (30-34); Mean Corpuscular Volume 76 fl (79-97); Platelet Count 197 K/mm3 (140-440); Red Blood Count 3.99 M/mm3 (3.65-5.03); Red Cell Distribution Width 19.8 % (13.2-15.2)
[2019-10-08 16:15] LABS: Alanine Aminotransferase 11 units/L (7-56); BUN/Creatinine Ratio 21; Blood Urea Nitrogen 15 mg/dL (7-17); Calcium 9.1 mg/dL (8.4-10.2); Hemolysis Index 9
--- NOTE | 2019-10-08 16:51 | Emergency Department Report ---
ED General Adult HPI - General Chief complaint: Psych Stated complaint: MENTAL ISSUE, COLD Time Seen by Provider: 10/08/19 15:38 Source: patient Mode of arrival: Ambulatory Limitations: No Limitations - History of Present Illness Initial comments: The patient presents to the emergency department the chief complaint homicidal ideation. Patient states that she wants to hurt everybody. Patient states she has a history of schizophrenia and is taking her medications. Patient denies suicidal ideation. Patient denies auditory or visual hallucinations. -: unknown Severity scale (0 -10): 0 Consistency: constant Improves with: none Worsens with: none Associated Symptoms: denies other symptoms Treatments Prior to Arrival: none - Related Data Home Medications Medication Instructions Recorded Confirmed Last Taken Divalproex Dr [DepaKOTE DR] 500 mg PO BID 12/12/16 05/19/19 1 Week Ago ~05/12/19 Oxycodone HCl [Roxicodone TAB] 15 mg PO Q6H PRN 12/12/16 05/19/19 Unknown Quetiapine Fumarate [SEROquel XR] 400 mg PO QPM 12/12/16 05/19/19 1 Week Ago ~05/12/19 Sertraline [Zoloft] 100 mg PO QDAY 12/12/16 05/19/19 1 Week Ago ~05/12/19 Zolpidem [Ambien] 10 mg PO QHS 12/12/16 05/19/19 Unknown Previous Rx's Medication Instructions Recorded Last Taken Type HYDROcodone/APAP 5-325 [[place] 1 each PO Q6HR PRN #10 tablet 05/12/17 Unknown Rx 5/325] Potassium Chloride [K-Dur] 40 meq PO QDAY 5 Days #10 tablet 07/10/19 Unknown Rx Allergies Allergy/AdvReac Type Severity Reaction Status Date / Time Fish Containing Products Allergy Swelling Verified 01/11/18 13:23 hotdogs AdvReac "can't Uncoded 12/12/16 08:38 digest" ED Review of Systems ROS: Stated complaint: MENTAL ISSUE, COLD Other details as noted in HPI Comment: All other systems reviewed and negative Constitutional: denies: chills, fever Eyes: denies: eye pain, eye discharge, vision change ENT: denies: ear pain, throat pain Respiratory: denies: cough, shortness of breath, wheezing Cardiovascular: denies: chest pain, palpitations Endocrine: no symptoms reported Gastrointestinal: denies: abdominal pain, nausea, diarrhea Genitourinary: denies: urgency, dysuria, discharge Musculoskeletal: denies: back pain, joint swelling, arthralgia Skin: denies: rash, lesions Neurological: denies: headache, weakness, paresthesias Psychiatric: homicidal thoughts. denies: anxiety, depression, auditory hallucinations, visual hallucinations, suicidal thoughts Hematological/Lymphatic: denies: easy bleeding, easy bruising ED Past Medical Hx - Past Medical History Previous Medical History?: Yes Hx Seizures: Yes Hx Psychiatric Treatment: Yes (Schizophrenia, PTSD) Hx Asthma: Yes Hx HIV: Yes Additional medical history: Heart Murmur. cocaine abuse. alcohol abuse - Surgical History Past Surgical History?: Yes Hx Appendectomy: Yes Additional Surgical History: . tubal ligation - Social History Smoking Status: Current Every Day Smoker Substance Use Type: Alcohol, Marijuana - Medications Home Medications: Home Medications Medication Instructions Recorded Confirmed Last Taken Type Divalproex Dr [DepaKOTE DR] 500 mg PO BID 12/12/16 05/19/19 1 Week Ago History ~05/12/19 Oxycodone HCl [Roxicodone TAB] 15 mg PO Q6H PRN 12/12/16 05/19/19 Unknown History Quetiapine Fumarate [SEROquel XR] 400 mg PO QPM 12/12/16 05/19/19 1 Week Ago History ~05/12/19 Sertraline [Zoloft] 100 mg PO QDAY 12/12/16 05/19/19 1 Week Ago History ~05/12/19 Zolpidem [Ambien] 10 mg PO QHS 12/12/16 05/19/19 Unknown History HYDROcodone/APAP 5-325 [[place] 1 each PO Q6HR PRN #10 tablet 05/12/17 05/19/19 Unknown Rx 5/325] Potassium Chloride [K-Dur] 40 meq PO QDAY 5 Days #10 tablet 07/10/19 Unknown Rx ED Physical Exam - General Limitations: No Limitations General appearance: alert, in no apparent distress - Head Head exam: Present: atraumatic, normocephalic - Eye Eye exam: Present: normal appearance, PERRL, EOMI - ENT ENT exam: Present: mucous membranes moist - Neck Neck exam: Present: normal inspection - Respiratory Respiratory exam: Present: normal lung sounds bilaterally. Absent: respiratory distress - Cardiovascular Cardiovascular Exam: Present: regular rate, normal rhythm. Absent: systolic murmur, diastolic murmur, rubs, gallop - GI/Abdominal GI/Abdominal exam: Present: soft, normal bowel sounds. Absent: distended, tenderness - Extremities Exam Extremities exam: Present: normal inspection - Back Exam Back exam: Present: normal inspection - Neurological Exam Neurological exam: Present: alert, oriented X3, CN II-XII intact. Absent: motor sensory deficit - Psychiatric Psychiatric exam: Present: normal affect, normal mood, homicidal ideation, other (tangential speech). Absent: suicidal ideation - Skin Skin exam: Present: warm, dry, intact, normal color. Absent: rash ED Course Vital Signs 10/08/19 10/08/19 15:28 21:07 Temperature 98.1 F 98.6 F Pulse Rate 96 H 78 Respiratory 18 18 Rate Blood Pressure 121/71 Blood Pressure 98/60 [Left] O2 Sat by Pulse 100 100 Oximetry ED Medical Decision Making - Lab Data Result diagrams: 10/08/19 15:43 10/08/19 15:43 Lab Results 10/08/19 10/08/19 10/08/19 Range/Units 15:43 15:43 15:43 WBC 3.2 L (4.5-11.0) K/mm3 RBC 3.99 (3.65-5.03) M/mm3 Hgb 9.8 L (10.1-14.3) gm/dl Hct 30.3 (30.3-42.9) % MCV 76 L (79-97) fl MCH 25 L (28-32) pg MCHC 32 (30-34) % RDW 19.8 H (13.2-15.2) % Plt Count 197 (140-440) K/mm3 Add Manual Diff Complete Total Counted 100 Seg Neutrophils % [facility] Seg Neuts % (Manual) 56.0 (40.0-70.0) % Band Neutrophils % 0 % Lymphocytes % (Manual) 32.0 (13.4-35.0) % Reactive Lymphs % (Man) 0 % Monocytes % (Manual) 8.0 H (0.0-7.3) % Eosinophils % (Manual) 4.0 (0.0-4.3) % Basophils % (Manual) 0 (0.0-1.8) % Metamyelocytes % 0 % Myelocytes % 0 % Promyelocytes % 0 % Blast Cells % 0 % Nucleated RBC % Not Reportable Seg Neutrophils # Man 1.8 (1.8-7.7) K/mm3 Band Neutrophils # 0.0 K/mm3 Lymphocytes # (Manual) 1.0 L (1.2-5.4) K/mm3 Abs React Lymphs (Man) 0.0 K/mm3 Monocytes # (Manual) 0.3 (0.0-0.8) K/mm3 Eosinophils # (Manual) 0.1 (0.0-0.4) K/mm3 Basophils # (Manual) 0.0 (0.0-0.1) K/mm3 Metamyelocytes # 0.0 K/mm3 Myelocytes # 0.0 K/mm3 Promyelocytes # 0.0 K/mm3 Blast Cells # 0.0 K/mm3 WBC Morphology Not Reportable Hypersegmented Neuts Not Reportable Hyposegmented Neuts Not Reportable Hypogranular Neuts Not Reportable Smudge Cells Not Reportable Toxic Granulation Not Reportable Toxic Vacuolation Not Reportable Dohle Bodies Not Reportable Pelger-Huet Anomaly Not Reportable Federico Rods Not Reportable Platelet Estimate Consistent w auto Clumped Platelets Not Reportable Plt Clumps, EDTA Not Reportable Large Platelets Not Reportable Giant Platelets Not Reportable Platelet Satelliting Not Reportable Plt Morphology Comment Not Reportable RBC Morphology Not Reportable Dimorphic RBCs Not Reportable Polychromasia Not Reportable Hypochromasia Not Reportable Poikilocytosis Not Reportable Anisocytosis 1+ Microcytosis Not Reportable Macrocytosis Not Reportable Spherocytes Not Reportable Pappenheimer Bodies Not Reportable Sickle Cells Not Reportable Target Cells Few Tear Drop Cells Not Reportable Ovalocytes Few Helmet Cells Not Reportable Sin-[place]ver[place] Bodies Not Reportable [place] Rings Not Reportable [place] Cells Not Reportable Bite Cells Not Reportable Crenated Cell Not Reportable Elliptocytes Rare Acanthocytes (Spur) Not Reportable Rouleaux Not Reportable Hemoglobin C Crystals Not Reportable Schistocytes Not Reportable Malaria parasites Not Reportable Gary Bodies Not Reportable Hem Pathologist Commnt No Sodium 136 L (137-145) mmol/L Potassium 3.5 L (3.6-5.0) mmol/L Chloride 101.3 (98-107) mmol/L Carbon Dioxide 22 (22-30) mmol/L Anion Gap 16 mmol/L BUN 15 (7-17) mg/dL Creatinine 0.7 (0.7-1.2) mg/dL Estimated GFR > 60 ml/min BUN/Creatinine Ratio 21 % Glucose 94 (65-100) mg/dL Calcium 9.1 (8.4-10.2) mg/dL Total Bilirubin 0.40 (0.1-1.2) mg/dL AST 27 (5-40) units/L ALT 11 (7-56) units/L Alkaline Phosphatase 50 (35-129) units/L Total Protein 10.4 H (6.3-8.2) g/dL Albumin 4.0 (3.9-5) g/dL Albumin/Globulin Ratio 0.6 % HCG, Qual (Negative) Salicylates < 0.3 L (2.8-20.0) mg/dL Acetaminophen (10.0-30.0) ug/mL Plasma/Serum Alcohol (0-0.07) % 10/08/19 10/08/19 10/08/19 Range/Units 15:43 15:43 15:43 WBC (4.5-11.0) K/mm3 RBC (3.65-5.03) M/mm3 Hgb (10.1-14.3) gm/dl Hct (30.3-42.9) % MCV (79-97) fl MCH (28-32) pg MCHC (30-34) % RDW (13.2-15.2) % Plt Count (140-440) K/mm3 Add Manual Diff Total Counted Seg Neutrophils % Seg Neuts % (Manual) (40.0-70.0) % Band Neutrophils % % Lymphocytes % (Manual) (13.4-35.0) % Reactive Lymphs % (Man) % Monocytes % (Manual) (0.0-7.3) % Eosinophils % (Manual) (0.0-4.3) % Basophils % (Manual) (0.0-1.8) % Metamyelocytes % % Myelocytes % % Promyelocytes % % Blast Cells % % Nucleated RBC % Seg Neutrophils # Man (1.8-7.7) K/mm3 Band Neutrophils # K/mm3 Lymphocytes # (Manual) (1.2-5.4) K/mm3 Abs React Lymphs (Man) K/mm3 Monocytes # (Manual) (0.0-0.8) K/mm3 Eosinophils # (Manual) (0.0-0.4) K/mm3 Basophils # (Manual) (0.0-0.1) K/mm3 Metamyelocytes # K/mm3 Myelocytes # K/mm3 Promyelocytes # K/mm3 Blast Cells # K/mm3 WBC Morphology Hypersegmented Neuts Hyposegmented Neuts Hypogranular Neuts Smudge Cells Toxic Granulation Toxic Vacuolation Dohle Bodies Pelger-Huet Anomaly Federico Rods Platelet Estimate Clumped Platelets Plt Clumps, EDTA Large Platelets Giant Platelets Platelet Satelliting Plt Morphology Comment RBC Morphology Dimorphic RBCs Polychromasia Hypochromasia Poikilocytosis Anisocytosis Microcytosis Macrocytosis Spherocytes Pappenheimer Bodies Sickle Cells Target Cells Tear Drop Cells Ovalocytes Helmet Cells Sin-Elverta Bodies [place] Rings [place] Cells Bite Cells Crenated Cell Elliptocytes Acanthocytes (Spur) Rouleaux Hemoglobin C Crystals Schistocytes Malaria parasites Gary Bodies Hem Pathologist Commnt Sodium (137-145) mmol/L Potassium (3.6-5.0) mmol/L Chloride (98-107) mmol/L Carbon Dioxide (22-30) mmol/L Anion Gap mmol/L BUN (7-17) mg/dL Creatinine (0.7-1.2) mg/dL Estimated GFR ml/min BUN/Creatinine Ratio % Glucose (65-100) mg/dL Calcium (8.4-10.2) mg/dL Total Bilirubin (0.1-1.2) mg/dL AST (5-40) units/L ALT (7-56) units/L Alkaline Phosphatase (35-129) units/L Total Protein (6.3-8.2) g/dL Albumin (3.9-5) g/dL Albumin/Globulin Ratio % HCG, Qual Negative (Negative) Salicylates (2.8-20.0) mg/dL Acetaminophen < 5.0 L (10.0-30.0) ug/mL Plasma/Serum Alcohol < 0.01 (0-0.07) % - Medical Decision Making 1013 applied medically cleared awaiting eval Critical care attestation.: If time is entered above; I have spent that time in minutes in the direct care of this critically ill patient, excluding procedure time. ED Disposition Clinical Impression: Homicidal ideation Disposition: [id number]/TX-65 PSY HOSP/PSY UNIT Is pt being admited?: No Does the pt Need Aspirin: No Condition: Stable
[2019-10-08 16:57] LABS: Basophils % (Manual) 0 % (0.0-1.8); Total Cells Counted 100
[2019-10-08 16:58] LABS: Platelet Estimate Consistent w Auto
[2019-10-08 16:59] LABS: Anisocytosis 1+; Ovalocytes Few; Target Cells Few
[2019-10-08 22:28] LABS: Bacteria,Urine 1+ /HPF (Negative); Bilirubin,Urine NEG (Negative); Blood,Urine NEG (Negative); Color,Urine Amber (Yellow); Mucus,Urine 3+ /HPF; Urobilinogen,Urine < 2.0 mg/dL (<2.0)
[2019-10-09 03:10] LABS: Amphetamine Screen,Urine PRESUMPTIVE NEGATIVE; Benzodiazepines Screen,Urine PRESUMPTIVE NEGATIVE; Cannabinoid Screen,Urine PRESUMPTIVE NEGATIVE; Cocaine Screen,Urine PRESUMPTIVE NEGATIVE; Methadone Screen,Urine PRESUMPTIVE NEGATIVE; Opiate Screen,Urine PRESUMPTIVE NEGATIVE
[2019-10-09 08:13] VITALS: BP 107/70
[2019-10-09] MEDS ORDERED: LORazepam 2 MG/ML VIAL IM ONE (08:44)
[2019-10-09] MEDS ORDERED: ZIPRASIDONE MESYLATE 20 MG VIAL IM ONE (08:44)
[2019-10-09] MEDS ORDERED: WATER FOR INJ Sterile (PF) 10 ML ONE (08:51)
[2019-10-09] MEDS ORDERED: HALOPERIDOL LACTATE 5 MG/1 ML INJ IM ONE (08:52)
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
== END 2019-10-09 13:10 ==
LOC: ED 15:16
DX: F25.9 Schizoaffective disorder, unspecified (principal); J45.909 Unspecified asthma, uncomplicated; F17.200 Nicotine dependence, unspecified, uncomplicated; F12.10 Cannabis abuse, uncomplicated; Z21 Asymptomatic human immunodeficiency virus [HIV] infection status; Z90.49 Acquired absence of other specified parts of digestive tract; Z98.51 Tubal ligation status; Z79.899 Other long term (current) drug therapy; Z91.013 Allergy to seafood
CPT/HCPCS: 36415; 80053; 80307; 80320; 81001; 84703; 85007; 85025; 87086; G0480; J1630; J2060; J3486

== ENCOUNTER 2021-05-22 19:40 | Emergency (ER) | payer MEDICARE ==
[2021-05-22] MEDS ORDERED: LORazepam 2 MG/ML VIAL IM PRN (20:59)
[2021-05-22] MEDS ORDERED: HALOPERIDOL LACTATE 5 MG/1 ML INJ IM PRN (20:59)
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
--- NOTE | 2021-05-22 21:42 | XRay Report ---
Left knee radiograph, 4 views HISTORY: Pain after injury COMPARISON: 11/06/2016 FINDINGS: Advanced tricompartmental osteoarthritis of the left knee, preferentially involving the med ial and patellofemoral compartments. There is no evidence of acute fracture or malalignment. Nonspeci fic small joint effusion. IMPRESSION: Advanced osteoarthritis. No acute osseous abnormality of the left knee. Signer Name: Zeke Singh MD Signed: 05/22/2021 9:38 PM Workstation Name: [id number]
[2021-05-22 22:03] LABS: Hematocrit 30.6 % (30.3-42.9); Hemoglobin 9.8 gm/dl (10.1-14.3); Mean Corpuscular HGB Conc 32 % (30-34); Mean Corpuscular Volume 80 fl (79-97); Platelet Count 169 K/mm3 (140-440); Red Blood Count 3.85 M/mm3 (3.65-5.03); Red Cell Distribution Width 17.7 % (13.2-15.2)
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
[2021-05-22 22:31] LABS: Blood Urea Nitrogen 12 mg/dL (7-17); Calcium 8.7 mg/dL (8.4-10.2); Hemolysis Index 2
[2021-05-22 22:33] LABS: BUN/Creatinine Ratio 20
[2021-05-23 01:41] LABS: Eosinophils % (Manual) 1.2 % (0.0-4.3); Total Cells Counted 81
[2021-05-23 01:45] LABS: Ovalocytes Few
[2021-05-23 01:46] LABS: Platelet Estimate Consistent w Auto
[2021-05-23 07:29] VITALS: BP 118/79
--- NOTE | 2021-05-23 09:46 | Electrocardiograph Report ---
[facility] Test Date: 2021-05-22 Test Time: 21:36:37 Pat Name: ANNETTE BOURGEOIS Department: Room: Gender: F Desk Director: MARCOS : 1970 Requested By: ANASTASIA OROPEZA Order Number: [id number] Reading MD: Manav Santiago Measurements Intervals [place] Rate: 81 P: 81 MS: 164 QRS: 85 QRSD: 93 T: 57 QT: 383 QTc: 444 Interpretive Statements Sinus rhythm Probable left atrial enlargement ST elev, probable normal early repol pattern No previous ECG available for comparison Electronically Signed On 05-23-2021 9:46:22 EDT by Manav Santiago
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
[2021-05-23] MEDS ORDERED: QUEtiapine 200 MG TAB PO SCH (11:00)
[2021-05-23] MEDS ORDERED: SERTRALINE 100 MG TAB PO SCH (11:00)
--- NOTE | 2021-05-23 11:29 | Event Note ---
Date: 05/23/21 Patient has been seen and evaluated by psychiatry team. 1013 has been rescinded. Patient currently denies any SI at this time. She will be disc harged with outpatient resources.
== END 2021-05-23 12:00 | disposition home or self-care (01) ==
LOC: ED 19:40
DX: M25.562 Pain in left knee (principal); F20.9 Schizophrenia, unspecified; Z00.8 Encounter for other general examination; Z59.0 Homelessness; F17.200 Nicotine dependence, unspecified, uncomplicated; F10.20 Alcohol dependence, uncomplicated; J45.909 Unspecified asthma, uncomplicated
CPT/HCPCS: 36415; 70450; 73562; 80048; 80164; 82550; 83735; 84484; 85007; 85025; 93005; 99284; U0003; 80320; G0480

== ENCOUNTER 2022-05-23 09:40 | Emergency (ER) | payer MEDICARE ==
--- NOTE | 2022-05-23 11:03 | Emergency Department Report ---
ED General Adult HPI - General Chief complaint: Psych Stated complaint: OFF MEDS, SEIZURES Time Seen by Provider: 05/23/22 10:54 Source: patient Mode of arrival: Ambulatory Limitations: Physical Limitation - History of Present Illness Initial comments: 53-year-old female came in today state that she is suicidal and also has rash at bilateral upper arm from the bedbugs. Patient said that is slightly itchy. According patient she wanted to jump infront of traffic today to kill her self. States she has homicidal thoughts too but no one in particular. According patient she in the past has attempted suicide by overdose. Patient denies hallucination. Patient denies any other symptoms. States she is out of her medications. Severity scale (0 -10): 0 - Related Data Home Medications Medication Instructions Recorded Confirmed Last Taken Divalproex Dr [DepaKOTE DR] 500 mg PO BID 12/12/16 05/19/19 1 Week Ago ~05/12/19 Oxycodone HCl [Roxicodone TAB] 15 mg PO Q6H PRN 12/12/16 05/19/19 Unknown Quetiapine Fumarate [SEROquel XR] 400 mg PO QPM 12/12/16 05/19/19 1 Week Ago ~05/12/19 Zolpidem (Nf) [Ambien] 10 mg PO QHS 12/12/16 05/19/19 Unknown Previous Rx's Medication Instructions Recorded Last Taken Type HYDROcodone/APAP 5-325 [[place] 1 each PO Q6HR PRN #10 tablet 05/12/17 Unknown Rx 5/325] Potassium Chloride [K-Dur] 40 meq PO QDAY 5 Days #10 tablet 07/10/19 Unknown Rx QUEtiapine [SEROquel] 200 mg PO BID #60 tablet 05/23/21 Unknown Rx Sertraline [Zoloft] 100 mg PO QDAY #30 05/23/21 Unknown Rx Allergies Allergy/AdvReac Type Severity Reaction Status Date / Time Fish Containing Products Allergy Swelling Verified 01/11/18 13:23 hotdogs AdvReac "can't Uncoded 12/12/16 08:38 digest" ED Review of Systems ROS: Stated complaint: OFF MEDS, SEIZURES Other details as noted in HPI Comment: All other systems reviewed and negative Constitutional: no symptoms reported, see HPI Eyes: as per HPI ENT: as per HPI Respiratory: no symptoms reported, see HPI Cardiovascular: as per HPI Endocrine: no symptoms reported, see HPI Gastrointestinal: as per HPI Genitourinary: as per HPI Musculoskeletal: as per HPI Skin: lesions, pruritus Neurological: as per HPI Psychiatric: suicidal thoughts. denies: anxiety, depression, auditory hallucinations, visual hallucinations, homicidal thoughts Hematological/Lymphatic: as per HPI ED Past Medical Hx - Past Medical History Previous Medical History?: Yes Hx Seizures: Yes Hx Psychiatric Treatment: Yes (Schizophrenia, PTSD) Hx Asthma: Yes Hx HIV: Yes Additional medical history: Heart Murmur. cocaine abuse. alcohol abuse - Surgical History Hx Appendectomy: Yes Additional Surgical History: . tubal ligation - Social History Smoking Status: Former Smoker Substance Use Type: None - Medications Home Medications: Home Medications Medication Instructions Recorded Confirmed Last Taken Type Divalproex Dr [DepaKOTE DR] 500 mg PO BID 12/12/16 05/19/19 1 Week Ago History ~05/12/19 Oxycodone HCl [Roxicodone TAB] 15 mg PO Q6H PRN 12/12/16 05/19/19 Unknown History Quetiapine Fumarate [SEROquel XR] 400 mg PO QPM 12/12/16 05/19/19 1 Week Ago History ~05/12/19 Zolpidem (Nf) [Ambien] 10 mg PO QHS 12/12/16 05/19/19 Unknown History HYDROcodone/APAP 5-325 [[place] 1 each PO Q6HR PRN #10 tablet 05/12/17 05/19/19 Unknown Rx 5/325] Potassium Chloride [K-Dur] 40 meq PO QDAY 5 Days #10 tablet 07/10/19 Unknown Rx QUEtiapine [SEROquel] 200 mg PO BID #60 tablet 05/23/21 Unknown Rx Sertraline [Zoloft] 100 mg PO QDAY #30 05/23/21 Unknown Rx ED Physical Exam - General Limitations: Physical Limitation General appearance: alert, in no apparent distress - Head Head exam: Present: atraumatic, normocephalic, normal inspection - Eye Eye exam: Present: normal appearance, PERRL, EOMI - ENT ENT exam: Present: normal exam, mucous membranes moist - Neck Neck exam: Present: normal inspection, full ROM - Respiratory Respiratory exam: Present: normal lung sounds bilaterally - Cardiovascular Cardiovascular Exam: Present: regular rate, normal rhythm, normal heart sounds - GI/Abdominal GI/Abdominal exam: Present: soft - Extremities Exam Extremities exam: Present: normal inspection, full ROM, normal capillary refill - Back Exam Back exam: Present: normal inspection, full ROM - Neurological Exam Neurological exam: Present: alert, oriented X3, CN II-XII intact - Psychiatric Psychiatric exam: Present: flat affect, homicidal ideation, suicidal ideation. Absent: depressed, agitated, anxious, manic - Skin Skin exam: Present: normal color ED Course Vital Signs 05/23/22 10:06 Temperature 98.4 F Pulse Rate 91 H Respiratory 14 Rate Blood Pressure 108/68 [Right] O2 Sat by Pulse 97 Oximetry ED Medical Decision Making - Lab Data Result diagrams: 05/23/22 11:18 05/23/22 11:18 Critical care attestation.: If time is entered above; I have spent that time in minutes in the direct care of this critically ill patient, excluding procedure time. ED Disposition Clinical Impression: Suicidal ideations, Homicidal ideations Condition: Stable
[2022-05-23 11:32] LABS: Hemoglobin 9.6 gm/dl (10.1-14.3); Red Blood Count 3.91 M/mm3 (3.65-5.03)
[2022-05-23 11:33] LABS: Mean Corpuscular HGB Conc 32 % (30-34); Mean Corpuscular Volume 77 fl (79-97); Platelet Count 220 K/mm3 (140-440); Red Cell Distribution Width 20.6 % (13.2-15.2)
[2022-05-23 11:50] LABS: Alanine Aminotransferase 13 units/L (7-56); Albumin 3.9 g/dL (3.9-5); Blood Urea Nitrogen 13 mg/dL (7-17); Calcium 8.6 mg/dL (8.4-10.2); Hemolysis Index 8
[2022-05-23 11:58] LABS: BUN/Creatinine Ratio 19
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
[2022-05-23] MEDS: QUEtiapine 100 MG TAB PO SCH ×2 (14:42→22:32)
[2022-05-23] MEDS: DIVALPROEX DR 250 MG TAB PO SCH ×2 (14:42→22:33)
[2022-05-23] MEDS: SERTRALINE 25 MG TAB PO SCH (14:42)
[2022-05-23] MEDS: DOXEPIN 10 MG CAP PO SCH (22:32)
[2022-05-23 23:50] LABS: Amphetamine Screen,Urine PRESUMPTIVE NEGATIVE; Benzodiazepines Screen,Urine PRESUMPTIVE NEGATIVE; Cannabinoid Screen,Urine PRESUMPTIVE NEGATIVE; Cocaine Screen,Urine PRESUMPTIVE NEGATIVE; Methadone Screen,Urine PRESUMPTIVE NEGATIVE; Opiate Screen,Urine PRESUMPTIVE NEGATIVE
[2022-05-24 00:25] LABS: Color,Urine Yellow (Yellow)
[2022-05-24 00:29] LABS: Mucus,Urine 3+ /HPF
[2022-05-24] MEDS ORDERED: MIDAZOLAM 2 MG/2 ML INJ IM PRN (05:39)
[2022-05-24] MEDS ORDERED: HALOPERIDOL LACTATE 5 MG/1 ML INJ IM PRN (05:39)
[2022-05-24] MEDS: QUEtiapine 100 MG TAB PO SCH (10:43)
[2022-05-24] MEDS: DIVALPROEX DR 250 MG TAB PO SCH ×2 (10:43→15:51)
[2022-05-24] MEDS: SERTRALINE 25 MG TAB PO SCH (10:44)
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
[2022-05-25 06:46] VITALS: BP 112/56
--- NOTE | 2022-05-25 08:52 | Progress Note ---
Subjective - Reason for Consult Consult date: 05/25/22 Reason for consult: SI/HI - Chief Complaint Chief complaint: The patient was seen today. She is irritable. The patient still endorses suicidal and homicidal thoughts. She says she is depressed, and has some stuff in her car to carry out her plans. The patient says "I'm not telling anybody what I'm gone do, but you'll fine out soon enough." She says "If I tell you, you will try to stop me." The patient denies hallucinations. REVIEW OF SYSTEMS Constitutional: Negative for weight loss ENT: Negative for stridor Respiratory: Negative for cough or hemoptysis All other systems reviewed and are negative MENTAL STATUS General Appearance and Behavior: age appropriate, good eye contact, cooperative, Cooperation: Cooperative Psychomotor Behavior: within normal limits Mood: depressed Affect and affective range: Congruent with stated mood Thought Process: goal directed Thought Content: hopelessness, helplessness, SI/HI Speech: Normal volume and Regular rate and rhythm Suicidal Ideation: Yes Homicidal Ideation: Yes Hallucinations: Denies Impulse Control:Limited Insight and Judgment: Limited Memory: Limited Attention: attentive Orientation: alert and oriented x3 Assessment Bipolar Disorder Treatment Plan 1013 Case management consult Zoloft 25mg po daily Depakote DR 250mg po TID Seroquel 100mg po BID Doxepin 10mg po qhs PSYCHOTHERAPY: Supportive psychotherapy provided MEDICAL: Per primary team DELIRIUM PRECAUTIONS: Please re-orient patient frequently, keep lights on during the day, and minimize benzodiazepines and opiates as these medications could worsen patient's confusion. 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 Will follow. Thanks Thank you for the consult. Please contact with any questions and/or concerns Case discussed with Dr. Galo who agrees with current disposition Mental Status Exam - Vital signs Last Vital Signs Temp 98.9 F 05/25/22 05:00 Pulse 82 05/25/22 05:00 Resp 18 05/25/22 05:00 BP 112/56 05/25/22 05:00 Pulse Ox 100 05/25/22 05:00
--- NOTE | 2022-05-25 11:56 | Event Note ---
Date: 05/25/22 patient seen today but still appeared anxious and continue to reports SI and HI. She was also seen by the psychiatry and recommend to continue inpatient psych treatment and monitor. She is to continue 1013, Case management to be consulted, and to continue Zoloft 25mg po daily, Depakote DR 250mg po TID Seroquel 100mg po BID and Doxepin 10mg po qhs. No other modifying or associated event to report at this time.
[2022-05-25] MEDS: QUEtiapine 100 MG TAB PO SCH (22:07)
[2022-05-25] MEDS: DIVALPROEX DR 250 MG TAB PO SCH (22:07)
[2022-05-25] MEDS: DOXEPIN 10 MG CAP PO SCH (22:08)
== END 2022-05-25 23:10 ==
LOC: ED 09:40
DX: R45.851 Suicidal ideations (principal); R45.850 Homicidal ideations; Z20.822 Contact with and (suspected) exposure to COVID-19; F20.9 Schizophrenia, unspecified; J45.909 Unspecified asthma, uncomplicated; F14.10 Cocaine abuse, uncomplicated; Z72.89 Other problems related to lifestyle; Z98.51 Tubal ligation status; Z87.891 Personal history of nicotine dependence; Z91.013 Allergy to seafood; Z79.899 Other long term (current) drug therapy
CPT/HCPCS: 36415; 80053; 80307; 81001; 84443; 85027; 99285; J1630; J2250; U0003; 80320; G0480